=== PATIENT | female | born 1975 | race Caucasian/White ===

== ENCOUNTER 2016-11-28 17:35 | Emergency (ER) | payer MEDICAID ==
[~2016-11-28] VITALS: Ht 157.5 cm; Wt 103.2 kg
[~2016-11-28 17:35] MED LIST: LOSA50TA6 PO; METF-406 PO
[2016-11-28 17:37] VITALS: Ht 157.5 cm; Wt 103.2 kg
[2016-11-28] MEDS ORDERED: FLUT9.9S NASAL (17:58)
[2016-11-28] MEDS ORDERED: GUAI-637 PO (17:58)
--- NOTE | 2016-11-28 18:54 | ERD ---
ER Documentation Chief Complaint Date/Time DATE: 11/28/16 TIME: 18:50 Chief Complaint fever,cough, runny nose since thursday HPI This is a 41-year-old female presenting to emergency department for cough, rhinorrhea and tactile fevers 6 days. Cough is dry nonproductive. Denies chest pain, shortness of breath or difficulty breathing. Patient has also had rhinorrhea. Patient did not check her temperatures at home however states she felt warm. No sick contacts. No labored breathing or stridor. No history of asthma or wheezing. No headache, earache, sore throat, difficulty swallowing or drooling. Patient is talking in complete sentences. ROS All systems reviewed and are negative except as per history of present illness. Medications Home Meds Active Scripts Guaifenesin* (Robitussin*) 100 Mg/5 Ml Syrup, 100 MG PO Q4H Y for COUGH, #240 ML Prov:ARSALAN BEEBE NP 11/28/16 Fluticasone Propionate (Flonase Allergy Relief) 9.9 Ml [place].susp, 1 SPRAY NASAL DAILY, #1 BOTTLE TO EACH NOSTRIL Prov:ARSALAN BEEBE NP 11/28/16 Reported Medications Losartan Potassium* (Losartan Potassium*) 50 Mg Tablet, 50 MG PO DAILY, TAB 09/17/14 Metformin Hcl* (Metformin Hcl* ER) 1,000 Mg Tab.er.24, 1000 MG PO DAILY, TAB.SA 09/17/14 Allergies Allergies: Coded Allergies: No Known Allergy (Unverified , 05/11/14) PMhx/Soc Medical and Surgical Hx: pt denies Medical Hx, pt denies Surgical Hx Hx Alcohol Use: No Hx Substance Use: No Hx Tobacco Use: No Physical Exam Vitals Vital Signs Date Time Temp Pulse Resp B/P Pulse Ox O2 Delivery O2 Flow Rate FiO2 11/28/16 17:37 98.2 89 18 116/70 99 Physical Exam Const: Alert, well-appearing Head: Atraumatic Eyes: Normal Conjunctiva ENT: Normal External Ears, Nose and Mouth. Neck: Full range of motion..~ No meningismus. Resp: Clear to auscultation bilaterally. No wheezing, rhonchi or crackles. No labored breathing or stridor. Cardio: Regular rate and rhythm, no murmurs Abd: Soft, non tender, non distended. Normal bowel sounds Skin: No petechiae or rashes Back: No midline or flank tenderness Ext: No cyanosis, or edema Neur: Awake and alert Psych: Normal Mood and Affect Procedures/MDM MDM: 41-year-old female presents emergency department for nonproductive cough, tactile fevers and rhinorrhea 6 days. Patient is afebrile upon arrival to ED. No signs or symptoms of respiratory distress. Vitals are stable. Oxygen saturation 98% on room air. Lung exam is unremarkable. No wheezing, rhonchi or crackles. No stridor or labored breathing. She is talking in complete sentences. Overall physical exam is unremarkable. Low suspicion for pneumonia, pleural effusion, pneumothorax or acute MN. Differential diagnosis includes but not limited to URI, influenza, otitis media , otitis externa, asthma exacerbation, croup, bronchitis, bronchiolitis and costochondritis. Patient is appropriate for outpatient management and will be given prescription for Robitussin and Flonase nasal spray. Instructed patient to follow-up with primary care provider in the next 2-3 days for reassessment and additional management. Return to ED for any high fever, chest pain, difficulty breathing, shortness breath, wheezing, vomiting, diarrhea, abdominal pain or any new or worsening symptoms. Patient verbalizes understanding. All questions answered at discharge. Setswana translation use during this encounter. Departure Diagnosis: Primary Impression: Upper respiratory infection URI type: unspecified viral URI Qualified Code: J06.9 - Viral upper respiratory tract infection Condition: Stable Patient Instructions: Uri, Viral, No Abx (Adult) [facility]errals[facility] Usted se alvarado hecho un examen mdico de control que le indica que no est en nataly condicin que requiera tratamiento urgente en el Departamento de Emergencia. Un estudio ms profundo y el tratamiento de zapien condicin pueden esperar sin ningn riesgo hasta que usted sea atendida/o en el consultorio de zapien mdico o nataly cl lisa. Es responsabilidad suya arreglar nataly meri para el seguimiento del shy. MANEJO DE CONDICIONES NO URGENTES EN EL FUTURO 1) Si usted tiene un mdico de atencin primaria: Usted debera llamar a zapien mdico de atencin primaria antes de venir al departamento de emergencia. Despus de las horas de consultorio, zapien doctor o zapien asociado/a est disponible por telfono. El mdico o enfermero de phillip en el servicio telefnico puede asesorarle por niya medio para atender el problema, o shy contrario se puede programar nataly meri. 2) Si usted no tiene un mdico de atencin primaria: Llame al mdico o clnica de referencia que aparece abajo juan las horas de consultorio para hacer nataly meri para que le vean. CLINICAS: [facility] [phone] [address] [place] [facility] [phone] [address] [facility] [address] [facility] [phone] [address] [facility]. [facility] [phone] [address] [facility] [facility] [facility] [phone] [address] [facility]. [phone] [address] [facility]. [facility] () Usted se alvarado hecho un examen mdico de control que le indica que no est en nataly condicin que requiera tratamiento urgente en el Departamento de Emergencia. Un estudio ms profundo y el tratamiento de zapien condicin pueden esperar sin ningn riesgo hasta que usted sea atendida/o en el consultorio de zapien mdico o nataly cl lisa. Es responsabilidad suya arreglar nataly meri para el seguimiento del shy. MANEJO DE CONDICIONES NO URGENTES EN EL FUTURO 1) Si usted tiene un mdico de atencin primaria: Usted debera llamar a zapien mdico de atencin primaria antes de venir al departamento de emergencia. Despus de las horas de consultorio, zapien doctor o zapien asociado/a est disponible por telfono. El mdico o enfermero de phillip en el servicio telefnico puede asesorarle por niya medio para atender el problema, o shy contrario se puede programar nataly meri. 2) Si usted no tiene un mdico de atencin primaria: Llame al mdico o condado institucions de referencia que aparece abajo juan las horas de consultorio para hacer nataly meri para que le vean. SI USTED NO PUEDE PAGAR PARA HOMER UN MEDICO puede ir a: [facility] [address] [place] [address] [facility] [address] [place] [address] [facility] [address] [place] [address] [address] [facility] [address] [place] [place], [place] [id number] Additional Instructions: Llame al doctor MAANA y rufino nataly MERI PARA DENTRO DE 2-3 MARIO.Dgale a la secretaria que nosotros le instruimos hacer esta meri.Avise o llame si zapien condicin se empeora antes de la meri. Regresa aqui si peor o no mejor. Return to ED for any high fever, chest pain, difficulty breathing, shortness breath, wheezing, vomiting, diarrhea, abdominal pain or any new or worsening symptoms. ARSALAN BEEBE NP November 28, 2016 18:54
== END 2016-11-28 18:03 | disposition home or self-care (01) ==
LOC: E/R 17:35
DX: J06.9 Acute upper respiratory infection, unspecified (principal); Z79.84 Long term (current) use of oral hypoglycemic drugs
CPT/HCPCS: 99283

== ENCOUNTER 2019-01-25 21:00 | Emergency (ER) | payer MEDICAID ==
[~2019-01-25] VITALS: Ht 152.4 cm; Wt 109.5 kg
[~2019-01-25 21:00] MED LIST changes: +FLUT9.9S NASAL; +GUAI-637 PO; +LOSA50TA14 PO; -LOSA50TA6 PO
[2019-01-25 21:01] VITALS: Ht 152.4 cm; Wt 109.5 kg
--- NOTE | 2019-01-25 23:38 | ERD ---
ER Documentation Chief Complaint Chief Complaint CP, BACK PAIN X'S 2 MOS HPI The patient is a 43-year-old female, presenting to the ER because of back pain for more than 2 months, complains of bilateral anterior chest discomfort for the last 2 weeks, worse with movement. She works at a [id number], require heavy lifting. The pain is worse after working, she denies fever, chills, neck pain, chest pain with radiation/exertion/diaphoresis/vomiting, dyspnea, abdominal pain, vomiting, dizzy, diarrhea. She does not smoke nor drink, LMP was 5 years ago Past medical history: Hypertension, diabetes mellitus Past surgical history: None ROS All systems reviewed and are negative except as per history of present illness. Medications Home Meds Active Scripts Ibuprofen* (Motrin*) 600 Mg Tab, 600 MG PO Q6H PRN for PAIN AND OR ELEVATED TEMP, #20 TAB Prov:LORRIE NASH MD 01/26/19 Guaifenesin* (Robitussin*) 100 Mg/5 Ml Syrup, 100 MG PO Q4H PRN for COUGH, #240 ML Prov:ARSALAN BEEBE NP 11/28/16 Fluticasone Propionate (Flonase Allergy Relief) 9.9 Ml [place].susp, 1 SPRAY NASAL DAILY, #1 BOTTLE TO EACH NOSTRIL Prov:ARSALAN BEEBE NP 11/28/16 Reported Medications Losartan Potassium* (Losartan Potassium*) 50 Mg Tablet, 50 MG PO DAILY, TAB 09/17/14 Metformin Hcl* (Metformin Hcl* ER) 1,000 Mg Tab.er.24, 1000 MG PO DAILY, TAB.SA 09/17/14 Allergies Allergies: Coded Allergies: No Known Allergy (Unverified , 05/11/14) PMhx/Soc Hx Alcohol Use: No Hx Substance Use: No Hx Tobacco Use: No Physical Exam Vitals Vital Signs Date Temp Pulse Resp B/P (MAP) Pulse Ox O2 O2 Flow FiO2 Time Delivery Rate 01/25/19 85 20 150/80 100 Room Air 23:30 (103) 01/25/19 98.1 108 18 174/77 96 21:01 (109) Physical Exam Const: No acute distress. Head: Atraumatic. Eyes: Normal Conjunctiva. ENT: Normal External Ears, Nose and Mouth. Neck: Full range of motion. No meningismus. Resp: Clear to auscultation bilaterally. Cardio: Regular rate and rhythm. Chest wall tenderness, no crepitus Abd: Soft, non distended, normal bowel sounds, non tender. Skin: No petechiae or rashes. Back: No midline or flank tenderness. Ext: No cyanosis, or edema. Neur: Awake and alert. No focal deficit Psych: Normal Mood and Affect. Result Diagram: 01/25/19 2344 01/25/19 2344 Results 24 hrs Laboratory Tests Test 01/25/19 23:44 01/25/19 23:57 01/25/19 23:59 White Blood Count 10.3 10^3/ul Red Blood Count 4.68 10^6/ul Hemoglobin 14.8 g/dl Hematocrit 41.0 % Mean Corpuscular Volume 87.6 fl Mean Corpuscular Hemoglobin 31.6 pg Mean Corpuscular Hemoglobin Concent 36.1 g/dl Red Cell Distribution Width 12.4 % Platelet Count 332 10^3/UL Mean Platelet Volume 11.0 fl Immature Granulocytes % 0.300 % Neutrophils % 49.3 % Lymphocytes % 45.0 % Monocytes % 3.5 % Eosinophils % 1.3 % Basophils % 0.6 % Nucleated Red Blood Cells % 0.0 /100WBC Immature Granulocytes # 0.030 10^3/ul Neutrophils # 5.1 10^3/ul Lymphocytes # 4.7 10^3/ul Monocytes # 0.4 10^3/ul Eosinophils # 0.1 10^3/ul Basophils # 0.1 10^3/ul Nucleated Red Blood Cells # 0.0 10^3/ul D-Dimer 450.71 ng/ml D-Dimer Comment Sodium Level 139 mmol/L Potassium Level 4.6 mmol/L Chloride Level 102 mmol/L Carbon Dioxide Level 27 mmol/L Anion Gap 10 Blood Urea Nitrogen 18 mg/dl Creatinine 0.48 mg/dl Est Glomerular Filtrat Rate mL/min > 60 mL/min Glucose Level 310 mg/dl Calcium Level 9.2 mg/dl Troponin I < 0.012 ng/ml Bedside Urine pH (LAB) 5.5 Bedside Urine Protein (LAB) Negative Bedside Urine Glucose (UA) 0.50% Bedside Urine Ketones (LAB) 1+ Bedside Urine Blood Trace-intact Bedside Urine Nitrite (LAB) Negative Bedside Urine Leukocyte Esterase (L Negative POC Beta HCG, Qualitative NEGATIVE Current Medications Medications Dose Sig/Luis Start Time Status Last (Trade) Ordered Route PRN Stop Time Admin Dose Reason Admin Ketorolac 30 mg ONCE STAT 01/25/19 DC 01/26/19 Tromethamine IV 23:50 01/25/19 00:07 (Toradol) 23:52 Famotidine 20 mg ONCE ONCE 01/26/19 DC 01/26/19 (Pepcid Iv) IV 00:00 00:06 01/26/19 00:01 Procedures/[place] [address] Radiology Main Line: [phone] DIAGNOSTIC IMAGING REPORT Patient: ARUN FARIA : 1975 Age: 43 Sex: F MR #: [id number] DOS: 01/25/19 2350 Ordering MD: LORRIE NASH MD Location: E/R Room/Bed: PROCEDURE: CHEST - 1 VIEW CLINICAL INDICATION: 43-year-old female with chest pain. TECHNIQUE: A single frontal AP view of the chest was performed. The images were reviewed on a PACS workstation. COMPARISON: None. FINDINGS: There is a shallow inspiration accentuating the heart size. Accounting for this, the cardiomediastinal silhouette is within normal limits. There is minimal bibasilar subsegmental atelectasis. There is no evidence for focal consolidation. There is no evidence for congestive heart failure. There is no evidence for pneumothorax. The osseous structures are intact. IMPRESSION: Shallow inspiration with minimal bibasilar subsegmental atelectasis. .Len Soto MD, Date Time Electronically viewed and signed by .Len Soto MD, MD on 01/26/2019 01:08 .M/ CC: LORRIE NASH MD [id number] EKG: At 9:04 PM read by emergency physician Rate/Rhythm: Sinus tachycardia 107 beats/min QRS, ST, T-waves: No ST elevation, no T inversion Impression: Abnormal EKG EKG: At 12:09 AM read by emergency physician Rate/Rhythm: Normal Sinus Rhythm 93 beats/min QRS, ST, T-waves: No ST elevation, no T inversion Impression: Normal EKG MEDICAL MAKING DECISION: The patient is a 43-year-old female, presenting with acute back pain, acute chest pain of unclear etiology, was treated with Toradol 30 mg IV for pain and Pepcid IV with good response, is stable for outpatient fol low-up. I do not suspect acute ACS or aortic disease The differential diagnoses for acute back pain considered include but are not limited to caudal equina syndrome, spinal abscess, DJD, diskitis, lumbar radiculopathy. The differential diagnoses for acute chest pain considered include but are not limited to acute coronary syndrome, acute myocardial infarction, pericarditis, pulmonary embolism, aortic dissection, pneumonia, pleural effusion, pneumothorax, GERD, chest wall pain. Departure Diagnosis: Primary Impression: Chest pain Additional Impression: Back pain Condition: Good Comments She was discharged with Motrin I discussed the findings with the patient. I advised the patient to follow-up with the primary physician in about 1-2 days, sooner if needed and return if any concern. Disclaimer: Inadvertent spelling and grammatical errors are likely due to [employer]/dictation software use and do not reflect on the overall quality of patient care. Also, please note that the electronic time recorded on this note does not necessarily reflect the actual time of the patient encounter. LORRIE NASH MD Jan 25, 2019 23:38
[2019-01-25] MEDS ORDERED: KETOROLAC 30 MG INJ IV STA (23:50)
[2019-01-26] MEDS ORDERED: FAMOTIDINE 20 MG INJ IV ONE
[2019-01-26] MEDS ORDERED: IBUP-1542 PO (02:34)
[2019-01-26 02:50] VITALS: BP 125/74; PULSE 88; RESP 19
== END 2019-01-26 02:50 | disposition home or self-care (01) ==
LOC: E/R 21:00
DX: R07.89 Other chest pain (principal); M54.9 Dorsalgia, unspecified; I10 Essential (primary) hypertension; E11.9 Type 2 diabetes mellitus without complications
CPT/HCPCS: 36415; 71045; 80048; 81003; 81025; 84484; 85025; 85378; 93005; 96374; 96375; J1885; Z7502; Z7610